=== PATIENT | male | born 1985 | race American Indian/Alaskan Native ===

== ENCOUNTER 2018-05-13 08:47 | Emergency (ER) | payer OTHER ==
[2018-05-13 08:57] VITALS: BP 137/81
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
--- NOTE | 2018-05-13 09:37 | XRay Report ---
LEFT SHOULDER: History: Fracture. Routine views demonstrate normal bony and soft tissue structures with normal joint alignment of the shoulder. IMPRESSION: Normal study.
== END 2018-05-13 09:44 | disposition home or self-care (01) ==
LOC: ED 08:47
DX: S49.92XA Unspecified injury of left shoulder and upper arm, initial encounter (principal); F17.200 Nicotine dependence, unspecified, uncomplicated; V89.2XXA Person injured in unspecified motor-vehicle accident, traffic, initial encounter; Y93.89 Activity, other specified; Y92.488 Other paved roadways as the place of occurrence of the external cause; Y99.8 Other external cause status
CPT/HCPCS: 99283

== ENCOUNTER 2018-06-20 22:42 | Emergency (ER) | payer SELFPAY ==
[2018-06-21 00:55] LABS: BUN/Creatinine Ratio 15; Blood Urea Nitrogen 21 mg/dL (9-20); Calcium 9.8 mg/dL (8.4-10.2); Hemolysis Index 9
[2018-06-21 01:01] LABS: Hematocrit 41.8 % (35.5-45.6); Hemoglobin 14.2 gm/dl (11.8-15.2); Mean Corpuscular HGB Conc 34 % (32-34); Mean Corpuscular Hemoglobin 28 pg (28-32); Mean Corpuscular Volume 82 fl (84-94); Platelet Count 265 K/mm3 (140-440); Red Blood Count 5.11 M/mm3 (3.65-5.03); Red Cell Distribution Width 14.2 % (13.2-15.2)
--- NOTE | 2018-06-21 01:15 | Emergency Department Report ---
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 Patient denies other acute complaint no headache no nausea vomiting no chest pain or shortness of breath no dysuria states itching bilateral hands and feet Onset/Timin -: days(s) Location: upper extremity, lower extremity Radiation: non-radiation Severity scale (0 -10): 4 Quality: burning - Related Data Previous Rx's Medication Instructions Recorded Last Taken Type HYDROcodone/APAP 5-325 [[place] 1 each PO Q6HR PRN #12 tablet 05/13/18 Unknown Rx 5/325] Ibuprofen [Motrin] 800 mg PO Q8HR PRN #20 tablet 05/13/18 Unknown Rx methOCARBAMOL [Robaxin TAB] 500 mg PO Q6H PRN #15 tablet 05/13/18 Unknown Rx Triamcinolone Aceton 0.1% (Nf) 1 applic TP BID #1 tube 06/21/18 Unknown Rx [Kenalog (NF)] hydrOXYzine HCL [Atarax] 25 mg PO Q6HR PRN #20 tablet 06/21/18 Unknown Rx Allergies Allergy/AdvReac Type Severity Reaction Status Date / Time No Known Allergies Allergy Unverified 05/13/18 08:57 ED Review of Systems ROS: Stated complaint: SCABIES Other details as noted in HPI Constitutional: denies: chills, fever Eyes: denies: eye pain, eye discharge, vision change ENT: denies: ear pain, throat pain Respiratory: denies: cough, shortness of breath, wheezing Cardiovascular: denies: chest pain, palpitations Endocrine: no symptoms reported Gastrointestinal: abdominal pain Genitourinary: denies: urgency, dysuria Musculoskeletal: denies: back pain, joint swelling, arthralgia Skin: denies: rash, lesions Neurological: denies: headache, weakness, paresthesias Psychiatric: denies: anxiety, depression Hematological/Lymphatic: denies: easy bleeding, easy bruising ED Past Medical Hx - Past Medical History Previous Medical History?: No - Surgical History Past Surgical History?: No - Social History Smoking Status: Current Every Day Smoker Substance Use Type: Marijuana - Medications Home Medications: Home Medications Medication Instructions Recorded Confirmed Last Taken Type HYDROcodone/APAP 5-325 [[place] 1 each PO Q6HR PRN #12 tablet 05/13/18 Unknown Rx 5/325] Ibuprofen [Motrin] 800 mg PO Q8HR PRN #20 tablet 05/13/18 Unknown Rx methOCARBAMOL [Robaxin TAB] 500 mg PO Q6H PRN #15 tablet 05/13/18 Unknown Rx Triamcinolone Aceton 0.1% (Nf) 1 applic TP BID #1 tube 06/21/18 Unknown Rx [Kenalog (NF)] hydrOXYzine HCL [Atarax] 25 mg PO Q6HR PRN #20 tablet 06/21/18 Unknown Rx ED Physical Exam - General Limitations: No Limitations General appearance: alert, in no apparent distress - Head Head exam: Present: atraumatic, normocephalic - Eye Eye exam: Present: normal appearance, PERRL, EOMI Pupils: Present: normal accommodation - ENT ENT exam: Present: mucous membranes moist - Neck Neck exam: Present: normal inspection, full ROM. Absent: tenderness, meningismus, lymphadenopathy, thyromegaly - Respiratory Respiratory exam: Present: normal lung sounds bilaterally. Absent: respiratory distress, wheezes, stridor, chest wall tenderness - Cardiovascular Cardiovascular Exam: Present: regular rate, normal rhythm. Absent: systolic murmur, diastolic murmur, rubs, gallop - GI/Abdominal GI/Abdominal exam: Present: soft, normal bowel sounds - Rectal Rectal exam: Present: deferred - Extremities Exam Extremities exam: Present: normal inspection, full ROM - Back Exam Back exam: Present: normal inspection, full ROM, CVA tenderness (R), CVA tenderness (L). Absent: tenderness - Neurological Exam Neurological exam: Present: alert, oriented X3, normal gait, reflexes normal. Absent: motor sensory deficit - Psychiatric Psychiatric exam: Present: normal affect, depressed, anxious. Absent: manic, homicidal ideation, suicidal ideation - Skin Skin exam: Present: warm, dry, intact, normal color. Absent: rash, cyanosis, diaphoretic, erythema, urticaria ED Course Vital Signs 06/20/18 06/21/18 06/21/18 22:52 01:34 01:45 Temperature 98.5 F Pulse Rate 81 64 55 L Respiratory 13 Rate Blood Pressure 122/88 113/68 O2 Sat by Pulse 98 Oximetry 06/21/18 06/21/18 06/21/18 02:01 02:15 02:30 Temperature Pulse Rate 81 59 L 52 L Respiratory 17 12 11 L Rate Blood Pressure 113/68 117/68 116/64 O2 Sat by Pulse 100 89 Oximetry 06/21/18 06/21/18 06/21/18 02:45 03:00 03:15 Temperature Pulse Rate 52 L 51 L 58 L Respiratory 14 15 15 Rate Blood Pressure 111/62 106/52 100/58 O2 Sat by Pulse 91 90 95 Oximetry 06/21/18 06/21/18 06/21/18 03:36 04:00 05:00 Temperature Pulse Rate 58 L 48 L Respiratory 18 14 14 Rate Blood Pressure 110/58 110/63 O2 Sat by Pulse 99 98 98 Oximetry ED Medical Decision Making - Lab Data Result diagrams: 06/21/18 00:23 06/21/18 00:23 Laboratory Tests 06/21/18 06/21/18 00:23 00:23 WBC 7.2 RBC 5.11 H Hgb 14.2 Hct 41.8 MCV 82 L MCH 28 MCHC 34 RDW 14.2 Plt Count 265 Lymph % (Auto) [employer] [place] [place] % (Auto) [employer] [place] Eos % (Auto) [employer] [place] Baso % (Auto) Super[employer] [place] Lymph # [employer]visor [place] # [employer] [place] Eos # Super[employer] [place] Baso # Super[employer] [place] Seg Neutrophils % [employer] [place] Seg Neutrophils # [employer] [place] Sodium 140 Potassium 3.3 L Chloride 98.5 Carbon Dioxide 26 Anion Gap 19 BUN 21 H Creatinine 1.4 Estimated GFR > 60 BUN/Creatinine Ratio 15 Glucose 88 Calcium 9.8 - Medical Decision Making Dry scaly skin not likely scabies infestation will tx with triamcinolone ointment , now request referral to Outpatient substance abuse tx. consulted PET , patient awaiting PET screening for referral for drug rehabilitation patient states last cocaine use last marijuana use last week there is no abdominal pain no nausea vomiting no symptoms of withdrawal noted pt is a/o x 3 demontrates sound decision making capacity. at this time there is no HI or SI ideation noted. pt moved to [facility] pending PET screening. 0620: PET evaluation completed, recommendation outpt follow up , scheduled for same via Mental Health Evaluation Team , will dc'd to self in stable condition at this time. No SI no HI Critical care attestation.: If time is entered above; I have spent that time in minutes in the direct care of this critically ill patient, excluding procedure time. ED Disposition Clinical Impression: Substance abuse Contact dermatitis Qualifiers: Contact dermatitis type: allergic Contact dermatitis trigger: other trigger Qualified Code(s): L23.89 - Allergic contact dermatitis due to other agents; L23.8 - Allergic contact dermatitis due to other agents Disposition: DC- TO HOME OR SELFCARE Is pt being admited?: No Does the pt Need Aspirin: No Condition: Good Instructions: Contact Dermatitis (ED), Polysubstance Abuse (ED) Prescriptions: hydrOXYzine HCL [Atarax] 25 mg PO Q6HR PRN #20 tablet PRN Reason: Itching Triamcinolone Aceton 0.1% (Nf) [Kenalog (NF)] 1 applic TP BID #1 tube Referrals: PRIMARY CARE,MD [Primary Care Provider] - 3-5 Days Forms: Work/School Release Form(ED) Time of Disposition: 06:36
[2018-06-21 05:54] VITALS: BP 110/63
[2018-06-21 06:29] LABS: Bilirubin,Urine NEG (Negative); Blood,Urine NEG (Negative); Color,Urine Yellow (Yellow); Mucus,Urine 3+ /HPF
[2018-06-21 08:40] LABS: Benzodiazepines Screen,Urine PRESUMPTIVE NEGATIVE; Methadone Screen,Urine PRESUMPTIVE NEGATIVE; Opiate Screen,Urine PRESUMPTIVE NEGATIVE
[2018-06-21 08:53] LABS: Amphetamine Screen,Urine PRESUMPTIVE POSITIVE; Cannabinoid Screen,Urine PRESUMPTIVE POSITIVE; Cocaine Screen,Urine PRESUMPTIVE POSITIVE
== END 2018-06-21 07:31 | disposition home or self-care (01) ==
LOC: ED 22:42
DX: L23.89 Allergic contact dermatitis due to other agents (principal); F13.10 Sedative, hypnotic or anxiolytic abuse, uncomplicated; F12.10 Cannabis abuse, uncomplicated; F17.200 Nicotine dependence, unspecified, uncomplicated; Z79.899 Other long term (current) drug therapy
CPT/HCPCS: 36415; 80048; 80307; 81001; 85025